=== PATIENT | male | born 1950 | race Caucasian/White ===

== ENCOUNTER 2017-10-27 15:25 | Inpatient (IN) ==
[2017-10-28] MEDS: Sod Chloride 0.9% Inj 1,000 ML IV.SIG SCH ×2 (05:36→15:25)
--- NOTE | 2017-10-28 06:10 | XR ---
EXAM DATE: 10/28/2017 5:44 AM EDT AGE/SEX: 67 years / Male INDICATIONS: Fall, fracture shoulder, humerus, pelvis. CLINICAL DATA: This is the patient's initial encounter. Patient reports that signs and symptoms have been present for 2 days and indicates a pain score of 10/10. MEDICAL/SURGICAL HISTORY: None. None. COMPARISON: [facility] [place]. . FINDINGS: Proximal left humeral neck fracture present. Remote bilateral clavicle fractures. Multiple left rib f ractures. No pneumothorax or effusion. No new lung consolidation. Heart size normal. CONCLUSION: No new consolidation or effusion. Multiple fractures as above. Electronically signed by: Edmund Avalos MD 10/28/2017 6:09 AM EDT
[2017-10-28 08:25] LABS: Baso % (Auto) 0.5 % (0.0-2.0); Eos # (Auto) 0.1 th/mm3 (0.0-0.4); Hematocrit 38.8 % (39.0-51.0); Hemoglobin 13.1 gm/dL (13.0-17.0); Lymph # (Auto) 1.5 th/mm3 (1.0-4.8); Lymph % (Auto) 20.2 % (9.0-44.0); Mean Corpuscular HGB Conc 33.6 % (32.0-36.0); Mean Corpuscular Hemoglobin 33.7 pg (27.0-34.0); Mean Corpuscular Volume 100.2 fL (80.0-100.0); Mean Platelet Volume 8.9 fL (7.0-11.0); Mono # (Auto) 0.4 th/mm3 (0.0-0.9); Mono % (Auto) 5.3 % (0.0-8.0); Neut # (Auto) 5.4 th/mm3 (1.8-7.7); Platelet Count 165 th/mm3 (150-450); Red Blood Count 3.87 mil/mm3 (4.50-5.90); Red Cell Distribution Width 13.7 % (11.6-17.2); White Blood Count 7.4 th/mm3 (4.0-11.0)
[2017-10-28 08:43] LABS: Albumin 3.3 g/dL (3.4-5.0); Anion Gap 10 meq/L (5-15); Aspartate Aminotransferase 17 U/L (15-37); Blood Urea Nitrogen 14 mg/dL (7-18); Carbon Dioxide 25.5 meq/L (21.0-32.0); Chloride 104 meq/L (98-107); Glomerular Filtration Rate Greater Than 89 mL/min (>89); Glucose,Random 90 mg/dL (74-106); Sodium 139 meq/L (136-145)
[2017-10-28 08:46] LABS: Alanine Aminotransferase 21 U/L (12-78); Alkaline Phosphatase 132 U/L (45-117); Total Protein 6.5 g/dL (6.4-8.2)
[2017-10-28] MEDS: Morphine Inj 4 MG/ML Vial IV.PUSH PRN ×4 (09:06→23:12)
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
[2017-10-28] MEDS: Pantoprazole Inj 40 MG Vial IV.PUSH SCH (20:00)
[2017-10-28] MEDS: Senna/Docusate Sodium 8.6/50 MG Tablet PO SCH (20:01)
[2017-10-29] MEDS: Sod Chloride 0.9% Inj 1,000 ML IV.SIG SCH (05:53)
[2017-10-29] MEDS ORDERED: Bupivacaine/Epinephrine Inj 0.25% 50 ML Vial ONE (06:56)
[2017-10-29] MEDS ORDERED: Sodium Chlor 0.9% Inj 250 ML ONE (06:57)
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
[2017-10-29] MEDS ORDERED: Metoprolol Tartrate 25 MG Tablet PO SCH (07:30)
[2017-10-29] MEDS ORDERED: Chlorhexidine Gluconate 2% 1 Pack (2 Cloths) TOPICAL SCH (07:30)
[2017-10-29] MEDS ORDERED: Sodium Chlor 0.9% Inj 500 ML IV.SIG SCH (08:00)
[2017-10-29] MEDS ORDERED: fentaNYL Citrate Inj 100 MCG/2 ML Ampul ONE (09:50)
[2017-10-29] MEDS ORDERED: Post-op Orders (for Pharmacy) OTHER STA (10:03)
[2017-10-29] MEDS ORDERED: Dextrose 50% in Water 50 ML Vial IV.PUSH PRN (10:03)
--- NOTE | 2017-10-29 10:14 | P.OP ---
Date of procedure: 10/29/17 Procedure: Open reduction internal fixation left distal radius fracture, open reduction internal fixation left olecranon fracture, Implants: ITS distal radius plate, Synthes olecranon plate Anesthesia: GETA Surgeon: Ivan Harrison MD Practical Nursing Teacher: Peter Ghotra (Tay uLi PA-C The surgical procedure was assisted by my physician ophthalmic assistant. My P.A. presence was necessary throughout this case for the manipulation and positioning of the surgical extremity. My P.A. was assisting me throughout the duration of this procedure. The skill set of a physician ophthalmic assistant was medically necessary to complete this procedure. During the surgical case the surgical services coordinator was working at the back table and the physician ophthalmic assistant was directly assisting me.) Operation and Findings: Implants used: ITS distal radius plate, Synthes olecranon plate Plan of activity: Nonweightbearing Details of procedure: Patient was seen and evaluated preoperatively and found to have a displaced left distal radius fracture, left olecranon fracture, and left proximal humerus fracture. Informed consent was obtained after detailed discussion of risk and benefits including bleeding, infection, injury to arteries, nerves, and blood vessels, weakness and numbness of hand, and tendon rupture. Informed consent was obtained. Patient received IV antibiotics prior to incision. Timeout procedure was performed. Operative extremity was prepped with alcohol followed by Hibiclens and draped usual sterile fashion. A standard volar approach to the distal radius was utilized. A 3 inch incision was made over the FCR tendon. Tendon sheath was opened. Pronator quadratus was elevated up. The fracture site was now visualized. The fracture did have intra-articular extension. Traction was applied. The articular surface was reduced. Fracture fragments were manipulated to achieve excellent reduction. K wires were used to hold provisional fixation. Fluoroscopy confirmed appropriate alignment of fracture. A variable angle distal radius plate was selected. Plate was provisionally fixed to bone with K wires. 2.7 and 2.4 cortical screws were used to compress plate to bone. Fluoroscopy confirmed appropriate alignment of fracture with well-placed hardware. Multiple 2.4 locking screws were now placed distally. Screws were predrilled and measured for appropriate length. 2 additional screws were placed into the shaft. K wires were removed. Final fluoroscopy revealed excellent of fracture with well- placed hardware. The wound was thoroughly irrigated with sterile saline. Subcutaneous tissue was closed with 3-0 Vicryl and skin was closed with 3-0 nylon. Sterile dressings were applied with Xeroform, 4 x 4, soft roll, and a well padded volar splint. Patient was now repositioned. Patient was placed into a lateral decubitus position. The operative arm was prepped with alcohol followed by Hibiclens and draped in usual sterile fashion. Procedure began with a 4 inch incision over the olecranon. Subcutaneous tissue dissected with Bovie. Fracture site was visualized. Fascia was elevated around the fracture site. There was mild comminution of the fracture site. Fracture fragments were gently manipulated. A fracture tenaculum was used to aid in reduction. Multiple K wires result provisional fixation. A Synthes proximal plate was selected. Plate was provisionally held with K wires 3.5 cortical screws were used to compress plate to bone. Multiple cortical screws were placed in the ulna shaft. Multiple locking screws were placed in the proximal ulna. All screws were predrilled and premeasured for appropriate length. K wires were removed. Final fluoroscopy revealed excellent of fractures well-placed hardware. Articular surface appeared to be in near anatomic alignment. Wound was now thoroughly irrigated. Incision was now closed with #1 Vicryl, 3-0 Vicryl, and lisha. Sterile dressings were applied. Patient's placed a well molded well-padded splint. Patient was transferred to recovery in stable condition.
[2017-10-29] MEDS ORDERED: Sodium Chlor 0.9% Inj 250 ML IV.SIG SCH (11:00)
[2017-10-29] MEDS ORDERED: *morphine SULFATE 4 MG/ML PERIprocedure ONLY ONE (11:06)
[2017-10-29] MEDS ORDERED: Sodium Chlor 0.9% Inj 250 ML IV.SIG ONE (12:00)
[2017-10-29] MEDS ORDERED: Phenylephrine/NS 1000 MCG/10ML Syringe IV.PUSH ONE (12:00)
[2017-10-29] MEDS ORDERED: Glycopyrrolate Inj 1 MG/5 ML Syringe IV.PUSH ONE (12:00)
[2017-10-29] MEDS ORDERED: Lidocaine PF 1% Inj 5 ML Syringe INFILTRATN ONE (12:00)
[2017-10-29] MEDS ORDERED: Neostigmine Inj 5 MG/5 ML Syringe IV.PUSH ONE (12:00)
[2017-10-29] MEDS: Senna/Docusate Sodium 8.6/50 MG Tablet PO SCH ×2 (13:04→21:17)
[2017-10-29] MEDS: Insulin NovoLIN Regular Correctional Sugar Inj SQ SCH ×2 (13:07→21:22)
[2017-10-29] MEDS: Morphine Inj 4 MG/ML Vial IV.PUSH PRN ×2 (14:26→17:48)
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
--- NOTE | 2017-10-29 15:03 | XR ---
EXAM DATE: 10/29/2017 2:55 PM EDT AGE/SEX: 67 years / Male INDICATIONS: Left shoulder pain. CLINICAL DATA: This is the patient's initial encounter. Patient reports that signs and symptoms have been present for 1 day and indicates a pain score of 10/10. MEDICAL/SURGICAL HISTORY: . Left elbow fracture . ORIF left shoulder COMPARISON: No prior exams available for comparison. FINDINGS: There appears to be a transverse nondepressed fracture through the proximal shaft of the humerus. The re appears to be some callus formation suggestive of some degree of healing. No definite joint disloc ation. 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 CONCLUSION: Nondisplaced healing fracture involving the proximal shaft of the humerus. Electronically signed by: Sebastian Taylor MD 10/29/2017 3:02 PM EDT
--- NOTE | 2017-10-29 16:46 | OTSOAPIP ---
TIME SESSION COMPLETED: AM TREATMENT TIME: 0 MINS. CHART REVIEWED. ATTEMPTED TO SEE FOR OT EVALUATION, HOWEVER OFF FLOOR FOR SURGERY. WILL FOLLOW. Therapist: Desire Clemens Signature on file
[2017-10-29] MEDS: ceFAZolin Inj 2,000 MG in Sodium Chlor 0.9% Inj 80 ML IV.SIG SCH (16:58)
--- NOTE | 2017-10-29 17:19 | XR ---
EXAM DATE: 10/29/2017 2:28 PM EDT AGE/SEX: 67 years / Male INDICATIONS: Open reduction internal fixation left elbow. CLINICAL DATA: This is the patient's initial encounter. Patient reports that signs and symptoms have been present for 1 day and indicates a pain score of Nonresponsive. MEDICAL/SURGICAL HISTORY: Non-responsive. Non-responsive. COMPARISON: No prior exams available for comparison. FINDINGS: Status post internal fixation of a fracture involving the proximal ulnar. There is good position alig nment of the fracture fragments. The hardware is grossly intact. There is good alignment at the elbow joint. CONCLUSION: Good position and alignment on this postoperative study. Electronically signed by: Sebastian Taylor MD 10/29/2017 5:18 PM EDT
--- NOTE | 2017-10-29 20:38 | P.DCO ---
- Diagnosis (1) Humerus fracture (2) Ulna fracture - Physical Therapy Order: Evaluate and treat, Improve ambulation, Strength and gait training - Home Health Nursing Order: Medical education, Signs/symptoms of disease process, Medication education-adverse effect, Nursing assessment with vital signs - Certification I have seen patient Edmund Benavides on 10/29/17. My clinical findings support the need for the requested home health care services because: Limited mobility due to disease progression, Deconditioned with increased weakness, Limited ability to care for self, High risk of falls I certify that my clinical findings support that this patient is homebound because: Post-op weakness, Unsteady gait/balance, Unsafe to leave home unassisted, Unable to use public transportation (1) Humerus fracture Qualifiers: Encounter type: initial encounter Humerus Location: shaft Fracture type: closed Fracture morphology: unspecified fracture morphology Laterality: left Qualified Code(s): S42.302A - Unspecified fracture of shaft of humerus, left arm , initial encounter for closed fracture (2) Ulna fracture Qualifiers: Encounter type: initial encounter Ulna location: proximal ulna Fracture type : closed Fracture morphology: other fracture Laterality: left Qualified Code( s): S52.092A - Other fracture of upper end of left ulna, initial encounter for closed fracture
[2017-10-30] MEDS: ceFAZolin Inj 2,000 MG in Sodium Chlor 0.9% Inj 80 ML IV.SIG SCH ×2 (00:48→08:54)
[2017-10-30] MEDS: Senna/Docusate Sodium 8.6/50 MG Tablet PO SCH ×3 (02:30→20:09)
[2017-10-30] MEDS: Pantoprazole Inj 40 MG Vial IV.PUSH SCH ×2 (02:31→20:08)
[2017-10-30] MEDS: Insulin NovoLIN Regular Correctional Sugar Inj SQ SCH ×5 (03:21→20:17)
[2017-10-30] MEDS: Sod Chloride 0.9% Inj 1,000 ML IV.SIG SCH ×3 (03:24→18:02)
[2017-10-30 06:24] LABS: Baso % (Auto) 0.1 % (0.0-2.0); Eos % (Auto) 0.1 % (0.0-4.0); Hematocrit 32.5 % (39.0-51.0); Hemoglobin 11.2 gm/dL (13.0-17.0); Lymph % (Auto) 21.7 % (9.0-44.0); Mean Corpuscular HGB Conc 34.6 % (32.0-36.0); Mean Corpuscular Hemoglobin 34.4 pg (27.0-34.0); Mean Corpuscular Volume 99.6 fL (80.0-100.0); Mean Platelet Volume 8.7 fL (7.0-11.0); Mono # (Auto) 0.3 th/mm3 (0.0-0.9); Mono % (Auto) 2.8 % (0.0-8.0); Neut # (Auto) 6.8 th/mm3 (1.8-7.7); Neut % (Auto) 75.3 % (16.0-70.0); Platelet Count 138 th/mm3 (150-450); Red Blood Count 3.26 mil/mm3 (4.50-5.90); Red Cell Distribution Width 13.9 % (11.6-17.2)
[2017-10-30 06:41] LABS: Anion Gap 9 meq/L (5-15); Blood Urea Nitrogen 9 mg/dL (7-18); Calcium 7.9 mg/dL (8.5-10.1); Carbon Dioxide 26.9 meq/L (21.0-32.0); Chloride 103 meq/L (98-107); Glomerular Filtration Rate Greater Than 89 mL/min (>89); Glucose,Random 113 mg/dL (74-106); Potassium 3.9 meq/L (3.5-5.1); Sodium 139 meq/L (136-145)
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
[2017-10-30 07:44] LABS: Lymphocytes 16 % (9-44); Monocytes 1 % (0-8)
[2017-10-30 07:46] LABS: RBC Morphology Normal (Normal)
[2017-10-30] MEDS: Morphine Inj 4 MG/ML Vial IV.PUSH PRN ×3 (08:09→20:10)
--- NOTE | 2017-10-30 08:42 | XR ---
EXAM DATE: 10/29/2017 9:24 AM EDT AGE/SEX: 67 years / Male INDICATIONS: Open reduction internal fixation left wrist. CLINICAL DATA: This is the patient's initial encounter. Patient reports that signs and symptoms have been present for 1 day and indicates a pain score of Nonresponsive. MEDICAL/SURGICAL HISTORY: Non-responsive. Non-responsive. COMPARISON: No prior exams available for comparison. CONCLUSION: Fluoroscopic images left wrist during placement of plate and screws along the distal radius fixating fracture. Ulnar styloid fracture. Electronically signed by: Ramsey Agosto MD 10/30/2017 8:41 AM EDT
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
--- NOTE | 2017-10-30 15:47 | P.PNOP ---
Subjective Interval history: Resting comfortably with no new complaints. Physical Exam Vital signs: Vital Signs 10/29/17 16:00 10/29/17 16:26 10/29/17 20:00 Temperature 98.7 F 100.1 F H Pulse Rate 83 64 76 Respiratory Rate 18 16 17 Blood Pressure 101/70 104/57 L Pulse Oximetry 97 97 10/29/17 20:32 10/30/17 00:00 10/30/17 08:00 Temperature 99.2 F 99.6 F Pulse Rate 87 77 85 Respiratory Rate 18 17 18 Blood Pressure 108/54 L 119/57 L Pulse Oximetry 96 95 10/30/17 08:40 10/30/17 11:48 10/30/17 12:00 Temperature 98.9 F Pulse Rate 90 Respiratory Rate 17 17 Blood Pressure 94/59 L Pulse Oximetry Intake & Output 10/29/17 10/30/17 10/30/17 18:59 06:59 18:59 Intake Total 1820 / 1820 580 / 580 Output Total 300 / 300 250 / 250 Balance 1520 / 1520 330 / 330 Weight 55 kg Intake: IV 100 / 100 100 / 100 Ancef Inj 2,000 MG In NS Inj 80 100 / 100 100 / 100 ML @ 200 mls/hr IV.SIG Q8H ENDER Rx#:[id number] Oral 720 / 720 480 / 480 Anesthesia Amount 1000 / 1000 Output: Urine 200 / 200 250 / 250 Estimated Blood Loss 100 / 100 Other: # Voids 3 2 Date of Last Bowel Movement 10/27/17 Weight On Admission 55 kg - Routine Extremities Exam Comments: Left upper extremity: Continue bruising and abrasion over proximal humerus.. Long-arm splint in place. Clean and dry. Distally intact sensation is able to extend fingers and make fist good capillary refills Results - Labs CBC & Chem 7: 10/30/17 05:29 10/30/17 05:29 Laboratory Results - last 24 hr 10/29/17 10/30/17 10/30/17 19:39 05:29 05:29 WBC 9.0 RBC 3.26 L Hgb 11.2 L Hct 32.5 L MCV 99.6 MCH 34.4 H MCHC 34.6 RDW 13.9 Plt Count 138 L MPV 8.7 Prelim Diff (Auto) Slide review pending Neut % (Auto) 75.3 H Lymph % (Auto) 21.7 [place] % (Auto) 2.8 Eos % (Auto) 0.1 Baso % (Auto) 0.1 Neut # (Auto) 6.8 Lymph # (Auto) 2.0 [place] # (Auto) 0.3 Eos # (Auto) 0.0 Baso # (Auto) 0.0 WBC Differential Manual diff final Seg Neuts % (Manual) 81 H Band Neuts % (Manual) 1 Lymphocytes % (Manual) 16 Monocytes % (Manual) 1 Basophils % (Manual) 1 Abs Neuts (Manual) 7.4 Differential Comment . Platelet Estimate Low L Platelet Morphology Enlarged H RBC Morphology Normal Sodium 139 Potassium 3.9 Chloride 103 Carbon Dioxide 26.9 Anion Gap 9 BUN 9 Creatinine 0.63 Estimated GFR Greater than 89 POC Glucose 188 H Random Glucose 113 H Calcium 7.9 L - Imaging Impressions Elbow X-Ray 10/29/17 00:00 CONCLUSION: Good position and alignment on this postoperative study. Wrist X-Ray 10/29/17 00:00 CONCLUSION: Fluoroscopic images left wrist during placement of plate and screws along the distal radius fixating fracture. Ulnar styloid fracture. Chest X-Ray 10/30/17 06:00 CONCLUSION: Lungs are hyperaerated. No definite infiltrate seen. Assessment and Plan - Assessment and Plan ORIF left olecranon and left distal radius fracture. POD 1 Left proximal humerus fracture with nonoperative treatment We will continue to be nonweightbearing on the left upper extremity and maintain splint. He will continue stay in sling and swath at all times. Physical therapy will continue to work with him and evaluate for home versus rehab discharge. Follow-up appointment with Dr. Lowe or LEONIDES in 2 weeks for repeat x-rays and examination of all 3 body parts of left upper extremity
[2017-10-31] MEDS: Morphine Inj 4 MG/ML Vial IV.PUSH PRN (00:20)
[2017-10-31] MEDS: Sod Chloride 0.9% Inj 1,000 ML IV.SIG SCH (05:03)
[2017-10-31] MEDS ORDERED: Bisacodyl 10 MG Supp RECTAL ONE (08:10)
[2017-10-31] MEDS: Insulin NovoLIN Regular Correctional Sugar Inj SQ SCH ×2 (08:33→14:54)
[2017-10-31] MEDS: Senna/Docusate Sodium 8.6/50 MG Tablet PO SCH (09:07)
--- NOTE | 2017-10-31 09:12 | P.PNOP ---
Subjective Interval history: Patient comfortable. Pain controlled. Physical Exam Vital signs: Vital Signs 10/30/17 11:48 10/30/17 12:00 10/30/17 15:42 Temperature 98.9 F Pulse Rate 90 84 Respiratory Rate 17 18 Blood Pressure 94/59 L Pulse Oximetry 10/30/17 16:00 10/30/17 19:20 10/30/17 20:59 Temperature 99.6 F 98.4 F Pulse Rate 93 H 85 86 Respiratory Rate 18 16 18 Blood Pressure 94/55 L 104/58 L Pulse Oximetry 96 95 10/30/17 23:55 10/31/17 00:09 10/31/17 03:46 Temperature 98.5 F Pulse Rate 79 81 Respiratory Rate 18 18 15 Blood Pressure 114/51 L Pulse Oximetry 96 10/31/17 08:40 Temperature Pulse Rate 91 H Respiratory Rate 14 Blood Pressure Pulse Oximetry 94 L Intake & Output 10/30/17 10/31/17 10/31/17 18:59 06:59 18:59 Intake Total 940 / 940 Output Total 1200 / 1200 975 / 975 Balance -1200 / -1200 -35 / -35 Weight 55 kg 55 kg Intake: IV 100 / 100 NS Inj 1,000 ML @ 100 mls/hr IV 0 / 0 .SIG .Q10H ENDER Rx#:[id number] Oral 840 / 840 Output: Urine 1200 / 1200 975 / 975 Other: Date of Last Bowel Movement 10/27/17 # Bowel Movements 0 Weight On Admission 55 kg Narrative: Left elbow/wrist dressing C/D/I splint in place good movement of fingers numbness/tingling to finger tips 2+ radial pulses - Constitutional no acute distress - Routine Neurological Exam Present: alert, oriented X3 Results - Labs CBC & Chem 7: 10/30/17 05:29 10/30/17 05:29 Laboratory Results - last 24 hr 10/30/17 10/31/17 20:08 07:44 POC Glucose 158 H 126 H Assessment and Plan - Assessment and Plan ORIF left olecranon and left distal radius fracture. POD 2 Left proximal humerus fracture with nonoperative treatment We will continue to be nonweightbearing on the left upper extremity and maintain splint. He will continue stay in sling and swath at all times. Physical therapy will continue to work with him and evaluate for home versus rehab discharge. Follow-up appointment with Dr. Lowe or [place] in 2 weeks for repeat x-rays and examination of all 3 body parts of left upper extremity
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
[2017-10-31] MEDS ORDERED: Enoxaparin Inj 40 MG/0.4 ML Syringe SQ SCH (13:00)
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
== END 2017-10-31 16:08 ==
LOC: NEDA 19:40 → N06 21:20
PROVIDERS: ADMIT Surgery; ATTEND Surgery